=== PATIENT | male | born 1990 | race Caucasian/White ===

== ENCOUNTER 2017-05-31 11:39 | Emergency (ER) | payer MEDICAID ==
[~2017-05-31] VITALS: Ht 177.8 cm; Wt 75.0 kg
[2017-05-31] MEDS ORDERED: ONDANSETRON HCL 4MG/2ML VIAL IV STA (12:15)
[2017-05-31] MEDS ORDERED: SODIUM CHLORIDE 0.9% 500 ML IV ONE (12:15)
[2017-05-31] MEDS ORDERED: PANTOPRAZOLE SODIUM 40 MG/VIAL IV STA (12:15)
[2017-05-31 12:43] LABS: BASOPHILS % 0.3 % (0.0-2.0); EOSINOPHILS % 2.2 % (0.0-5.0); HEMATOCRIT. 46.7 % (42.0-52.0); HEMOGLOBIN. 15.8 g/dL (14.0-18.0); LYMPHOCYTES % 18.4 % (20.0-50.0); MEAN CORPUSCULAR HEMOGLOBIN 29.3 pg (28.0-32.0); MEAN CORPUSCULAR VOLUME 86.9 fL (80.0-94.0); MEAN PLATELET VOLUME 9.6 fl (7.4-10.4); MONOCYTES % 7.2 % (2.0-8.0); NEUTROPHILS % 71.9 % (40.0-76.0); PLATELET 220 x1000/uL (130-400); RED BLOOD CELL COUNT 5.38 mill/uL (4.7-6.1); RED CELL DISTRIBUTION WIDTH 13.8 % (11.6-14.6)
[2017-05-31 12:44] LABS: INR 1.1; PROTHROMBIN TIME 11.2 sec
[2017-05-31 12:52] LABS: CARBON DIOXIDE 30 mEq/L (21-32); CHLORIDE 105 mEq/L (98-107)
[2017-05-31] MEDS ORDERED: SODIUM CHLORIDE 0.9% 10ML VIAL ONE (13:31)
[2017-05-31] MEDS ORDERED: IOHEXOL-300 100 ML BOTTLE ONE (13:31)
[2017-05-31] MEDS ORDERED: KETOROLAC 30MG/ML VIAL IV ONE (14:00)
[2017-05-31 14:26] VITALS: BP 122/75
[2017-05-31 14:35] LABS: CLARITY URINE CLEAR (CLEAR); COLOR URINE YELLOW (YELLOW); GLUCOSE URINE NEGATIVE (NEGATIVE); KETONES URINE NEGATIVE (NEGATIVE); LEUKOCYTE ESTERASE URINE NEGATIVE (NEGATIVE); NITRITE URINE NEGATIVE (NEGATIVE); OCCULT BLOOD URINE NEGATIVE (NEGATIVE); PH URINE 8.5 (4.5-8.0); PROTEIN URINE NEGATIVE (NEGATIVE); SPECIFIC GRAVITY URINE 1.049 (1.005-1.030)
[2017-05-31 14:48] LABS: *AMPHETAMINES SCREEN URINE NEGATIVE (NEGATIVE); *BARBITURATES SCREEN URINE NEGATIVE (NEGATIVE); *BENZODIAZEPINES SCREEN URINE NEGATIVE (NEGATIVE); *COCAINE SCREEN URINE NEGATIVE (NEGATIVE); CANNABINOID URINE SCREEN PRESUMTIVE POSITIVE (NEGATIVE); METHADONE URINE SCREEN NEGATIVE (NEGATIVE); OPIATES URINE SCREEN NEGATIVE (NEGATIVE); PHENCYCLIDINE URINE SCREEN NEGATIVE (NEGATIVE)
== END 2017-05-31 15:15 | disposition home or self-care (01) ==
LOC: ER 12:31
DX: K92.2 Gastrointestinal hemorrhage, unspecified (principal); K44.9 Diaphragmatic hernia without obstruction or gangrene; F17.210 Nicotine dependence, cigarettes, uncomplicated
CPT/HCPCS: 36415; 74177; 80053; 80305; 81003; 83690; 85025; 85610; 86850; 86900; 86901; 96361; 96374; 96375; 99285; A4216; C9113; J2405; J7040; Q9967; Z7610

== ENCOUNTER 2020-07-14 03:03 | Emergency (ER) | payer OTHER ==
[~2020-07-14] VITALS: Ht 180.3 cm; Wt 67.6 kg
[2020-07-14] MEDS ORDERED: MORPHINE SULFATE 4 MG/ML CPJ (NOT FOR IM USE) IV ONE (03:45)
[2020-07-14] MEDS ORDERED: PROPOFOL 200MG/20ML VIAL IV ONE (04:15)
[2020-07-14] MEDS ORDERED: KETAMINE HCL 50 MG/ML 10ML IV ONE (04:15)
[2020-07-14 05:09] LABS: HEMATOCRIT 42.8 % (42.0-52.0); HEMOGLOBIN 14.4 g/dL (14.0-18.0); MEAN CORPUSCULAR HEMOGLOBIN 29.3 pg (28.0-32.0); MEAN CORPUSCULAR VOLUME 87.2 fL (80.0-94.0); PLATELET 241 x1000/uL (130-400); RED BLOOD CELL COUNT 4.91 mill/uL (4.7-6.1); RED CELL DISTRIBUTION WIDTH 12.9 % (11.6-14.6)
[2020-07-14 05:15] LABS: CHLORIDE 123 mEq/L (98-107)
[2020-07-14 05:19] LABS: ETHANOL BLOOD < 10 mg/dL
[2020-07-14] MEDS ORDERED: CALCIUM GLUCONATE 100MG/ML 10ML VIAL IV SCH (06:30)
[2020-07-14] MEDS: SODIUM CHLORIDE 0.9% 1,000 ML IV SCH ×2 (06:32→07:14)
[2020-07-14 09:30] VITALS: BP 143/98
== END 2020-07-14 09:50 | disposition home or self-care (01) ==
LOC: ER 03:03
DX: S43.005A Unspecified dislocation of left shoulder joint, initial encounter (principal); F15.10 Other stimulant abuse, uncomplicated; F12.10 Cannabis abuse, uncomplicated; F17.210 Nicotine dependence, cigarettes, uncomplicated; F10.10 Alcohol abuse, uncomplicated; Y90.0 Blood alcohol level of less than 20 mg/100 ml; X58.XXXA Exposure to other specified factors, initial encounter; Y93.89 Activity, other specified; Y92.018 Other place in single-family (private) house as the place of occurrence of the external cause
CPT/HCPCS: 23650; 36415; 73030; 80053; 80320; 85027; 93005; 96361; 96374; 96375; 99152; 99285; J0610; J2270; J2704; J3490; L3670; G0480

== ENCOUNTER 2021-03-18 17:41 | Emergency (ER) | payer OTHER ==
[~2021-03-18] VITALS: Ht 175.3 cm; Wt 73.0 kg
[2021-03-18] MEDS ORDERED: MORPHINE SULFATE 4 MG/ML CPJ (NOT FOR IM USE) IV ONE (17:45)
[2021-03-18] MEDS ORDERED: SODIUM CHLORIDE 0.9% 1,000 ML IV ONE (18:00)
[2021-03-18] MEDS ORDERED: PROPOFOL 200MG/20ML VIAL IV NR (18:00)
[2021-03-18] MEDS ORDERED: ONDANSETRON HCL 4MG/2ML INJ IV NR (18:00)
[2021-03-18] MEDS ORDERED: FENTANYL CITRATE/PF 50MCG/ML 2ML VIAL IV ONE (19:00)
[2021-03-19 00:30] VITALS: BP 135/85
== END 2021-03-19 00:44 | disposition home or self-care (01) ==
LOC: ER 17:41
DX: S43.085A Other dislocation of left shoulder joint, initial encounter (principal); F15.10 Other stimulant abuse, uncomplicated; F12.10 Cannabis abuse, uncomplicated; F10.21 Alcohol dependence, in remission; X58.XXXA Exposure to other specified factors, initial encounter; Y93.89 Activity, other specified; Y92.488 Other paved roadways as the place of occurrence of the external cause
CPT/HCPCS: 23650; 73030; 93005; 99152; 99285; J2270; J2405; J2704; J3010; A4565

== ENCOUNTER 2021-12-24 20:56 | Emergency (ER) | payer SELFPAY ==
[~2021-12-24] VITALS: Ht 177.8 cm; Wt 71.0 kg
[2021-12-24] MEDS ORDERED: MORPHINE SULFATE 4 MG/ML CPJ (NOT FOR IM USE) IV STA (21:11)
[2021-12-24] MEDS ORDERED: ONDANSETRON HCL 4MG/2ML INJ IV STA (21:11)
[2021-12-24] MEDS ORDERED: SODIUM CHLORIDE 0.9% 1,000 ML IV ONE (21:15)
[2021-12-24 22:48] LABS: BASOPHILS % 0.2 % (0.0-2.0); EOSINOPHILS % 1.4 % (0.0-5.0); HEMATOCRIT. 46.9 % (42.0-52.0); HEMOGLOBIN. 15.5 g/dL (14.0-18.0); LYMPHOCYTES % 13.6 % (20.0-50.0); MEAN CORPUSCULAR HEMOGLOBIN 27.1 pg (28.0-32.0); MEAN CORPUSCULAR VOLUME 82.2 fL (80.0-94.0); MEAN PLATELET VOLUME 8.4 fl (7.4-10.4); MONOCYTES % 8.4 % (2.0-8.0); NEUTROPHILS % 76.4 % (40.0-76.0); PLATELET 364 x1000/uL (130-400); RED BLOOD CELL COUNT 5.71 mill/uL (4.7-6.1); RED CELL DISTRIBUTION WIDTH 13.7 % (11.6-14.6)
[2021-12-24 22:51] LABS: CHLORIDE 105 mEq/L (98-107)
[2021-12-24 22:55] LABS: ETHANOL BLOOD < 10 mg/dL
[2021-12-25] MEDS ORDERED: IBUP-2029 MT (00:10)
[2021-12-25 01:00] VITALS: BP 116/81
== END 2021-12-25 03:28 | disposition home or self-care (01) ==
LOC: ER 20:56
DX: M79.605 Pain in left leg (principal); M79.604 Pain in right leg; F15.10 Other stimulant abuse, uncomplicated; F12.10 Cannabis abuse, uncomplicated; F17.290 Nicotine dependence, other tobacco product, uncomplicated
CPT/HCPCS: 29515; 36415; 73560; 73590; 80053; 80320; 85025; 96361; 96374; 96375; 99284; 99406; J2270; J2405; J7030; G0480